=== PATIENT | female | born 1975 | race Two or more races ===

== ENCOUNTER 2021-02-06 15:06 | Outpatient (CLI) | payer OTHER, SELFPAY ==
--- NOTE | 2021-02-06 15:11 | MM_ITS ---
WS: [id number] BILATERAL DIGITAL SCREENING MAMMOGRAPHY WITH CAD CLINICAL INFORMATION: SCREENING HISTORY: Screening mammogram. No current complaints. COMPARISON: TECHNIQUE: Bilateral CC and MLO views. FINDINGS: Scattered fibroglandular densities bilaterally. No suspicious focal mass, asymmetry, calcifications, or architectural distortion. No evidence of malignancy. MM/[place] [id number] IMPRESSION: BI-RADS: 1-Negative FOLLOW UP: 1 Year Follow-up Recommend return to annual screening mammography.
== END 2021-02-06 15:07 | disposition home or self-care (01) ==
LOC: RADSHAW 15:09
PROVIDERS: Family Provider Family Medicine; PCP Nurse Practitioner; Visit Provider Nurse Practitioner
DX: Z12.31 Encounter for screening mammogram for malignant neoplasm of breast (principal)
CPT/HCPCS: 77067

== ENCOUNTER 2022-01-17 10:23 | Outpatient (CLI) | payer OTHER, SELFPAY ==
--- NOTE | 2022-01-17 10:29 | MM_ITS ---
WS: [id number] BILATERAL SCREENING 3D TOMOSYNTHESIS DIGITAL MAMMOGRAM WITH CAD HISTORY: SCREENING COMPARISON: 02/06/2021 and 11/03/2017 Bilateral CC and MLO views submitted. Computer aided detection analyzed. Breast composition: There are scattered areas of fibroglandular density. No suspicious masses, microc alcifications or architectural distortion. MM/[place] [id number] IMPRESSION: BI-RADS: 1-Negative FOLLOW UP: 1 Year Follow-up
== END 2022-01-17 10:24 | disposition home or self-care (01) ==
LOC: RAD 10:26
PROVIDERS: Family Provider Family Medicine; PCP Nurse Practitioner; Visit Provider Nurse Practitioner
DX: Z12.31 Encounter for screening mammogram for malignant neoplasm of breast (principal)
CPT/HCPCS: 77063; 77067

== ENCOUNTER → 2022-01-29 14:56 | Outpatient (BNVA) | payer OTHER, SELFPAY | PROVIDERS: Family Provider Family Medicine; PCP Nurse Practitioner; Referring Provider Nurse Practitioner; Visit Provider Obstetrics & Gynecology | DX: Z30.433 Encounter for removal and reinsertion of intrauterine contraceptive device (principal); Z30.9 Encounter for contraceptive management, unspecified | CPT/HCPCS: 87070; 87205 ==

== ENCOUNTER 2023-02-05 08:18 | Outpatient (CLI) | payer OTHER, SELFPAY ==
--- NOTE | 2023-02-05 08:29 | MM_ITS ---
WS: [id number] Bilateral screening 3D tomosynthesis digital mammogram, 02/05/2023 Clinical Data: SCREENING Comparison: 01/17/2022, 02/06/2021, 11/03/2017, 12/25/2014. Findings: The breast parenchymal pattern shows fibroglandular tissue. No spiculated masses or clustered calcifi cations are seen. There are no secondary signs of carcinoma. MM/[place] [id number] Impression: 1. Negative bilateral mammogram unchanged. 2. Recommend annual screening mammograms. BIRADS: 1-Negative FOLLOW UP: 1 Year Follow-up The CAD shipping checker was used.
== END 2023-02-05 08:19 | disposition home or self-care (01) ==
PROVIDERS: PCP Nurse Practitioner; Visit Provider Nurse Practitioner
DX: Z12.31 Encounter for screening mammogram for malignant neoplasm of breast (principal)
CPT/HCPCS: 77063; 77067

== ENCOUNTER → 2023-03-16 15:58 | Outpatient (BNVA) | payer OTHER, SELFPAY | PROVIDERS: PCP Nurse Practitioner; Visit Provider Dermatology | DX: L81.1 Chloasma (principal); L81.7 Pigmented purpuric dermatosis; D22.62 Melanocytic nevi of left upper limb, including shoulder; L81.4 Other melanin hyperpigmentation; Z12.83 Encounter for screening for malignant neoplasm of skin; Z87.2 Personal history of diseases of the skin and subcutaneous tissue | CPT/HCPCS: 99203 ==

== ENCOUNTER 2023-04-06 15:17 | Outpatient (CLI) | payer OTHER, SELFPAY ==
--- NOTE | 2023-04-06 15:25 | US_ITS ---
WS: [id number] Exam: US abdomen limited [id number] Date/Time of Exam: 04/06/2023 3:41 PM Reason For Exam: STONES A single large stone is noted in the gallbladder measuring slightly over 3 cm at greatest diameter. N o sign of gallbladder wall edema or pericholecystic fluid. Mild mild hepatic enlargement noted. The l iver measures 17.12 cm at greatest dimension. No intrahepatic ductal dilatation or hepatic mass noted . The common bile duct is not dilated and measures 4.7 mm at greatest diameter. The pancreas is unrem arkable. The IVC is patent with phasic flow. Normal-appearing right kidney measures 9.9 x 5.3 x 4.9 c m. The abdominal aorta was normal in caliber. No mass or free fluid in the right abdomen. US/US abdomen limited [id number] IMPRESSION: 1. Single large stone in the gallbladder measuring 3 cm at greatest diameter. N o sign of acute cholecystitis. 2. Mild hepatomegaly. 3. No other significant finding.
== END 2023-04-06 15:18 | disposition home or self-care (01) ==
PROVIDERS: PCP Nurse Practitioner; Visit Provider Nurse Practitioner
DX: K80.20 Calculus of gallbladder without cholecystitis without obstruction (principal)
CPT/HCPCS: 76705

== ENCOUNTER → 2024-03-16 08:21 | Outpatient (BNVA) | payer OTHER, SELFPAY | PROVIDERS: PCP Nurse Practitioner; Visit Provider Nurse Practitioner Family | DX: L70.0 Acne vulgaris (principal); Z87.2 Personal history of diseases of the skin and subcutaneous tissue; L81.7 Pigmented purpuric dermatosis; L57.0 Actinic keratosis; I78.8 Other diseases of capillaries; L02.821 Furuncle of head [any part, except face]; D22.62 Melanocytic nevi of left upper limb, including shoulder; L81.4 Other melanin hyperpigmentation | CPT/HCPCS: 17000; 99214 ==

== ENCOUNTER 2024-03-28 10:14 | Outpatient (CLI) | payer OTHER, SELFPAY ==
--- NOTE | 2024-03-28 10:19 | MM_ITS ---
WS: [id number] Bilateral screening 3D tomosynthesis digital mammogram, 03/28/2024 Clinical Data: SCREENING Comparison: 02/05/2023, 01/17/2022, 02/06/2021, 11/03/2017, 12/25/2014. Findings: The breast parenchymal pattern shows fibroglandular tissue. No spiculated masses or clustered calcifi cations are seen. There are no secondary signs of carcinoma. MM/[place] [id number] Impression: 1. Negative bilateral mammogram unchanged. 2. Recommend annual screening mammograms. BIRADS: 1-Negative FOLLOW UP: 1 Year Follow-up The CAD food checker was used.
== END 2024-03-28 10:15 | disposition home or self-care (01) ==
LOC: RAD 10:14
PROVIDERS: PCP Nurse Practitioner; Visit Provider Nurse Practitioner
DX: Z12.31 Encounter for screening mammogram for malignant neoplasm of breast (principal)
CPT/HCPCS: 77063; 77067

== ENCOUNTER → 2024-08-16 08:45 | Outpatient (BNVA) | payer OTHER, SELFPAY | PROVIDERS: PCP Nurse Practitioner; Visit Provider Nurse Practitioner Family | DX: L70.0 Acne vulgaris (principal); L81.1 Chloasma; D22.62 Melanocytic nevi of left upper limb, including shoulder; L81.4 Other melanin hyperpigmentation; L81.3 Cafe au lait spots; L85.3 Xerosis cutis; L02.821 Furuncle of head [any part, except face]; Z87.2 Personal history of diseases of the skin and subcutaneous tissue | CPT/HCPCS: 99214 ==

== ENCOUNTER 2025-03-31 08:24 | Outpatient (CLI) | payer OTHER, SELFPAY ==
--- NOTE | 2025-03-31 08:48 | MM_ITS ---
WS: [id number] BILATERAL 3D TOMOSYNTHESIS DIGITAL SCREENING MAMMOGRAPHY WITH CAD CLINICAL INFORMATION: SCREENING HISTORY: Screening mammogram. No current complaints. COMPARISON: 2023 TECHNIQUE: Bilateral CC and MLO views. FINDINGS: Scattered fibroglandular densities bilaterally. No suspicious focal mass, asymmetry, calcifications, or architectural distortion. No evidence of malignancy. MM/MM scr [place] tomosynthesis [id number] IMPRESSION: DENSITY: There are scattered areas of fibroglandular density. BI-RADS: 1 - Negative. FOLLOW UP: 1 Year Follow-up Recommend return to annual screening mammography.
== END 2025-03-31 08:25 | disposition home or self-care (01) ==
LOC: RAD 08:26
PROVIDERS: PCP Nurse Practitioner; Visit Provider Nurse Practitioner
DX: Z12.31 Encounter for screening mammogram for malignant neoplasm of breast (principal)
CPT/HCPCS: 77063; 77067

== ENCOUNTER → 2025-04-04 09:53 | Outpatient (BNVA) | payer OTHER, SELFPAY | PROVIDERS: PCP Nurse Practitioner; Visit Provider Surgery | DX: Z12.11 Encounter for screening for malignant neoplasm of colon (principal) | CPT/HCPCS: 99203 ==

== ENCOUNTER 2025-05-11 06:35 | Day surgery (SDC) | payer OTHER, SELFPAY ==
[2025-05-11 06:54] VITALS: BP 127/88; PULSE 94; RESP 18; TEMP 36.1; O2SAT 96; BMI 41.5
--- NOTE | 2025-05-11 06:57 | W.PM.OPSFHP ---
Same Day Surgery H&P Indication for Procedure/HPI DATE OF PROCEDURE: May 11, 2025 CHIEF COMPLAINT/INDICATIONFOR SURGICAL PROCEDURE: need for screening colonoscopy PREOP DIAGNOSIS: need for screening colonoscopy PLANNED PROCEDURE: Operation Date: 05/11/25 07:40 Proposed Procedures p Colonoscopy 42906 G0121, Z12.11(Not Applicable) - Joshua Waller MD Medications/Allergies* Home Medications ?Medication ?Instructions ?Recorded ?Confirmed ?Type empagliflozin 25 mg tablet 25 mg PO DAILY 04/04/25 05/09/25 History (Jardiance) levothyroxine 100 mcg tablet 100 mcg PO DAILY 05/09/25 05/09/25 History Allergies/Adverse Reactions Allergy/AdvReac Type Severity Reaction Status Date / Time guaifenesin Allergy Severe ALGY-Anaphy Verified 05/09/25 08:21 laxis ibuprofen Allergy Mild Unknown Verified 05/09/25 08:21 loratadine (From Claritin) Allergy Mild Unknown Verified 05/09/25 08:21 Pertinent History/Comorbid Conditions* Medical History (Updated 04/15/22 @ 13:05 by RONNIE Euceda-Ashleigh) Pigmented purpura Keratosis pilaris Multiple benign nevi Hypothyroid No pertinent past medical history neghx: dm, htn, dvt/pe, asthma PCP: Maric[facility] Surgical History (Updated 01/30/22 @ 13:13 by Mercedez Smith MD) History of appendectomy 2012 Family History (Updated 01/29/22 @ 13:27 by Liseth Patel LPN) Cervical cancer Family/Other paternal cousin Diabetes Family/Other maternal uncle Breast cancer Family/Other maternal aunt Hypertension Mother Uterine cancer Grandmother paternal Thyroid disease Grandmother maternal Denies family history of Colon cancer Ovarian cancer Prostate cancer Heart disease Hyperlipidemia Bleeding disorder Stroke Social History Smoking and tobacco/nicotine status: never used tobacco/nicotine Pertinent Exam Findings alert, oriented x 3, clear to auscultation bilaterally and regular rate & rhythm Recommendations Surgery/Procedure today Coding Level of Care Code Acute Code for Chg Fwd
[2025-05-11 07:00] LABS: OR HCG Qualitative Urine Negative (Negative)
--- NOTE | 2025-05-11 07:10 | ANES.PREANE2 ---
Pre-Anesthetic Assessment Height/Weight: Height 1.7 m Weight 120.202 kg Temp Pulse Resp BP Pulse Ox O2 Del Method 97.0 F L 94 18 127/88 96 Room Air 05/11/25 06:54 05/11/25 06:54 05/11/25 06:54 05/11/25 06:54 05/11/25 06:54 05/11/25 06:54 Preop Diagnosis: need for screening colonoscopy Operation Date: 05/11/25 07:40 Proposed Procedures p Colonoscopy [id number] G0121, Z12.11(Not Applicable) - Joshua Waller MD Familial anesthetic complications: none Was Beta Devon taken within 24 hours: N/A Was Clonidine taken within 24 hours: N/A Last intake: Intake Last Liquid Date 05/10/25 Last Liquid Time 23:00 Last Solid Date 05/09/25 Last Solid Time 20:30 Social No alcohol and No tobacco Exam alert, oriented x 3 and clear to auscultation bilaterally Airway Mallampati: Class II Dentition: full History/ROS No significant history except as noted Pulmonary None reported CV/HEM None reported None reported Hepatic None reported GI None reported Metabolic Diabetes Mellitus, Morbid Obesity and Thyroid Disease [facility] [place] None reported Neuropsych None reported Anesthetic Plan ASA status: 3 Anesthesia: Anesthesia Evaluation and MAC Risk of > 500 ml blood loss (7ml/kg in children): No Medications/Allergies Home Medications ?Medication ?Instructions ?Recorded ?Confirmed ?Last Taken ?Type empagliflozin 25 mg tablet 25 mg PO DAILY 04/04/25 05/09/25 05/08/25 History (Jardiance) levothyroxine 100 mcg tablet 100 mcg PO DAILY 05/09/25 05/09/25 05/08/25 History Allergies Allergy/AdvReac Type Severity Reaction Status Date / Time guaifenesin Allergy Severe ALGY-Anaphy Verified 05/09/25 08:21 laxis ibuprofen Allergy Mild Unknown Verified 05/09/25 08:21 loratadine (From Claritin) Allergy Mild Unknown Verified 05/09/25 08:21 Current Medications Generic Name Dose Route Start Last Admin Trade Name Freq PRN Reason Stop Dose Admin Sodium Chloride 1,000 mls @ 15 mls/hr 05/11/25 06:40 05/11/25 07:02 Sodium Chloride 0.9% IV 05/12/25 06:39 15 mls/hr .Q24H PRN Administration COLONOSCOPY FLUIDS PFSH Anesthesia Medical History Pigmented purpura Keratosis pilaris Multiple benign nevi Hypothyroid No pertinent past medical history neghx: dm, htn, dvt/pe, asthma PCP: Maricruz Hens[facility] Surgical History History of appendectomy 2012 Family History Family/Other Diabetes maternal uncle Breast cancer maternal aunt Cervical cancer paternal cousin Mother Hypertension Grandmother Thyroid disease maternal Uterine cancer paternal Denies family history of Colon cancer Ovarian cancer Prostate cancer Heart disease Hyperlipidemia Bleeding disorder Stroke Social History Smoking and tobacco/nicotine status: never used tobacco/nicotine
--- NOTE | 2025-05-11 08:05 | SUR.OPER ---
cecum time [id number]
[2025-05-11 08:10] VITALS: BP 88/45; PULSE 86; RESP 10; TEMP 36.1; O2SAT 94
[2025-05-11 08:22] VITALS: BP 90/52; PULSE 78; RESP 14; O2SAT 95
[2025-05-11 08:37] VITALS: BP 107/65; PULSE 74; RESP 16; O2SAT 97
--- NOTE | 2025-05-11 15:29 | ANE.PACU2 ---
Inpatient post-anesthesia follow up: Airway intact: Yes Vital signs: Temperature 97 F Pulse Rate 74 Respiratory Rate 16 Blood Pressure 107/65 Pulse Oximetry 97 Oxygen Delivery Me thod Room Air Oxygen Flow Rate Fraction of Inspir ed Oxygen Hydration adequate: Yes Nausea and vomiting: No Pain level: 1 Mental status: Baseline
== END 2025-05-11 08:55 | disposition home or self-care (01) ==
PROVIDERS: PCP Nurse Practitioner; Visit Provider Surgery
PROC: 0DJD8ZZ Inspection of Lower Intestinal Tract, Via Natural or Artificial Opening Endoscopic (ICD-10-PCS; CPT 45378; principal; 2025-05-11 07:40)
DX: Z12.11 Encounter for screening for malignant neoplasm of colon (principal); E11.9 Type 2 diabetes mellitus without complications; E66.01 Morbid (severe) obesity due to excess calories; Z68.41 Body mass index [BMI] 40.0-44.9, adult; E03.9 Hypothyroidism, unspecified
CPT/HCPCS: 36416; 45378; 81025; 82962; J2704; J7030